=== PATIENT | female | born 1975 | race Two or more races ===

== ENCOUNTER 2019-06-01 05:52 | Day surgery (SDC) | payer OTHER | END 2019-06-01 15:20 | disposition home or self-care (01) | LOC: CIR.AMB 05:52 → ADM 08:30 → CIR.AMB 15:20 | DX: N93.8 Other specified abnormal uterine and vaginal bleeding (principal) ==

== ENCOUNTER 2022-02-05 07:39 | Day surgery (SDC) | payer OTHER ==
[~2022-02-05] VITALS: Ht 162.6 cm; Wt 106.6 kg
[~2022-02-05 07:39] MED LIST: COMPLETE OMEGA1 EACH PO; EMERGEN-C 500500 MG PO; NEPHRONEX-SL T1 EACH PO
== END 2022-02-05 13:15 | disposition home or self-care (01) ==
LOC: CIR.AMB 07:39
PROVIDERS: ATTEND Obstetrics & Gynecology
DX: N84.0 Polyp of corpus uteri (principal); D64.9 Anemia, unspecified; Z20.822 Contact with and (suspected) exposure to COVID-19; Z88.0 Allergy status to penicillin

== ENCOUNTER 2023-05-01 11:45 | Inpatient (IN) | payer OTHER ==
[~2023-05-01] VITALS: Ht 162.6 cm; Wt 107.5 kg
[2023-05-01] MEDS ORDERED: VALSARTAN80 MG PO (14:05)
[2023-05-01] MEDS ORDERED: IRON236 MG PO (14:06)
[2023-05-01] MEDS ORDERED: MEGESTROL ACETA40 MG PO (14:06)
[2023-05-01] MEDS ORDERED: ROSUVASTATIN CAL5 MG PO (14:06)
[2023-05-01] MEDS ORDERED: D3 DOTS50 MCG PO (14:07)
[2023-05-06 16:13] LABS: HEMATOCRIT 32.5 % (36.0-45.00); HEMOGLOBIN 10.6 g/dL (12.0-15.00); MEAN CORPUSCULAR HEMOGLOBIN 27.4 pg (27.00-32.0); MEAN CORPUSCULAR HGB CONC 32.7 g/dl (32.0-36.0); PLATELET COUNT 344 K/uL (150-450); RED BLOOD COUNT 3.87 M/uL (4.00-6.00); RED CELL DISTRIBUTION WIDTH 14.6 % (11.5-14.5)
[2023-05-08] MEDS ORDERED: GABAPENTIN300 MG PO (07:03)
[2023-05-08] MEDS ORDERED: IBUPROFEN800 MG PO (07:03)
[2023-05-08] MEDS ORDERED: POLY119PG PO (07:04)
[2023-05-08] MEDS ORDERED: SIMETHICONE125 M1 PO (07:04)
[2023-05-08] MEDS ORDERED: MIRALAX17 GM PO (07:11)
[2023-05-08] MEDS ORDERED: IBU800 MG PO (07:11)
[2023-05-08] MEDS ORDERED: SIMETHICONE80 MG PO (07:11)
[2023-05-08] MEDS ORDERED: NEURONTIN300 MG PO (07:11)
[2023-05-08] MEDS ORDERED: HIBICLENS118 ML SPEPROC (07:11)
== END 2023-05-08 09:39 | disposition home or self-care (01) | DRG 743 ==
LOC: OB/GYN 05-06 07:00 → O/R 05-06 08:02 → OB/GYN 05-06 08:02
PROVIDERS: ADMIT Obstetrics & Gynecology; ATTEND Obstetrics & Gynecology
PROC: 0UT70ZZ Resection of Bilateral Fallopian Tubes, Open Approach (ICD-10-PCS; 2023-05-06)
PROC: 0UT90ZZ Resection of Uterus, Open Approach (ICD-10-PCS; principal; 2023-05-06 07:00)
DX: D25.1 Intramural leiomyoma of uterus (principal); N84.0 Polyp of corpus uteri; N72 Inflammatory disease of cervix uteri; Z20.822 Contact with and (suspected) exposure to COVID-19